=== PATIENT | female | born 1955 | race Caucasian/White ===

== ENCOUNTER → 2017-08-04 | Outpatient (CLI) | payer BC ==
[~2017-08-04] MED LIST: BENADRYL25 MG; CLARITHROMYCIN500 MG PO; FLAGYL250 M1 PO; MEDROL DOSEPAK4 MG PO; PREMARIN PO; TYLOX1 CAP 5/50 PO; ZOLOFT100 MG PO
--- NOTE | ~2017-08-04 | US6 ---
[facility] A Service of [facility] & [facility] RADIOLOGY TEXT RESULTS PATIENT: MT JARRELL LOCATION: US : 55 UNIT #: [id number] AGE: [address]: Nawaf Payan MD SEX: F ORDER DR: [id number] [facility] [address] [place], [place] [address] [id number] O MR#: [id number] Acc #: [id number] NAME: MT JARRELL : 1955 SEX: F STUDY DATE/TIME: 08/04/2017 10:29 UNIT: [facility] ROOM: STUDY DESCRIPTION: US Abdominal Limited Attending Physician: Nawaf Payan M.D. Referring Physician: Nawaf Payan M.D. Ordering Physician: Nawaf Payan M.D. Primary Care Physician: Nawaf Payan M.D. MEDICAL IMAGING REPORT This report is preliminary unless electronic signature is present EXAM Right upper quadrant abdominal ultrasound, 08/04/2017 HISTORY Abnormal elevated liver function test. Cholecystectomy several years ago. Hypertension. COMPARISON CT abdomen and pelvis without contrast, 06/05/2016 FINDINGS Portions of the pancreas are obscured by bowel gas but the visualized pancreas appears normal. Cyst in the left hepatic lobe measures 1.4 cm. A cyst in the right hepatic lobe measures about 2.5 cm. These findings correspond to the previous CT from 06/05/2016. Liver demonstrates a mildly coarsened echotexture with slight diminished acoustic through transmission, suggesting features of hepatic steatosis. Common bile duct caliber is normal, 5 mm. No intrahepatic biliary ductal dilation is seen. Gallbladder is surgically absent. The right kidney measures 11.3 cm in length without focal cortical lesion, shadowing stone or hydronephrosis. The hyperdense lesions seen within the right kidney measuring 9 mm on the 06/05/2016 examination has no sonographic correlate today. No right side hydronephrosis. Intrahepatic IVC is poorly visualized. No ascites is evident. IMPRESSION 1. Features of hepatic steatosis. Two hepatic cysts correspond to the [facility] A Service of [facility] & [facility] RADIOLOGY TEXT RESULTS PATIENT: MT JARRELL LOCATION: [facility] : 55 UNIT #: [id number] AGE: [address]: Nawaf Payan MD SEX: F ORDER DR: findings from CT abdomen from 06/05/2016. 2. A 9 mm hyperdense lesion is seen in the right kidney on previous 2015 CT abdomen has no sonographic correlate today. 3. Cholecystectomy. No abnormal biliary dilation. Dictated by... Ruth Jones M.D. THIS IS AN ELECTRONICALLY VERIFIED REPORT Ruth Jones M.D. at 08/06/2017 10:30 PM [place] TD: 08/04/2017 13:19 JOB #: [id number] MEDICAL IMAGING REPORT Page 1 of 1 COPY
== END | disposition home or self-care (01) ==
LOC: CGUS 09:46
DX: R74.8 Abnormal levels of other serum enzymes (principal); K76.0 Fatty (change of) liver, not elsewhere classified; K76.89 Other specified diseases of liver; N28.89 Other specified disorders of kidney and ureter; Z90.49 Acquired absence of other specified parts of digestive tract
CPT/HCPCS: 76705